=== PATIENT | female | born 1985 | race Caucasian/White ===

== ENCOUNTER 2024-03-27 22:27 | Emergency (ER) | payer MEDICAID ==
[2024-03-27 22:57] LABS: BASOPHILS % (AUTO) 0.2 %; EOSINOPHILS # (AUTO) 0.1 10^3/uL (0.0-0.7); EOSINOPHILS % (AUTO) 0.6 %; HCT - HEMATOCRIT 39.7 % (37.0-47.0); HGB - HEMOGLOBIN 12.7 g/dL (12.0-16.0); LYMPHOCYTES # (AUTO) 2.3 10^3/uL (1.5-3.5); LYMPHOCYTES % (AUTO) 25.9 %; MEAN CORPUSCULAR HEMOGLOBIN 29.3 pg (27.0-31.0); MEAN CORPUSCULAR VOLUME 91.7 fL (81.0-99.0); MEAN PLATELET VOLUME 9.8 fL (7.9-10.8); MONOCYTES # (AUTO) 0.7 10^3/uL (0.0-1.0); MONOCYTES % (AUTO) 7.7 %; NEUTROPHILS # (AUTO) 5.7 10^3/uL (1.5-6.6); NEUTROPHILS % (AUTO) 65.3 %; PLT - PLATELET COUNT 334 10^3/uL (130-450); RED BLOOD COUNT 4.33 10^6/uL (4.20-5.40); RED CELL DISTRIBUTION WIDTH 12.7 % (12.0-15.0); WHITE BLOOD COUNT 8.8 x10^3/uL (4.8-10.8)
[2024-03-27 23:17] LABS: ALBUMIN 4.5 g/dL (3.2-5.5); ALBUMIN/GLOBULIN RATIO 1.6 (1.0-2.2); BILIRUBIN,TOTAL 0.7 mg/dL (0.2-1.0); CALCIUM 9.9 mg/dL (8.5-10.3); CREATININE 0.6 mg/dL (0.6-1.3); POTASSIUM 3.8 mmol/L (3.5-4.5); TOTAL PROTEIN 7.4 g/dL (6.4-8.9)
[2024-03-27 23:18] VITALS: BP 120/81; O2SAT 100
--- NOTE | 2024-03-27 23:39 | ED Physician Documentation ---
History of Present Illness - Stated complaint Stated Complaint: PAIN/BLOOD SUGAR ISSUES - Chief complaint Chief Complaint: General - History obtained from History obtained from: Patient - Additonal information Additional information: The patient presents to the emergency department with a variety of complaints, Each say going into the other. The patient really cannot articulate exactly why she is here stating by turns that her back hurts, her foot hurts, she had a blood sugar issue, and she is coughing, among other things. She denies any trauma. No fevers or chills. PD PAST MEDICAL HISTORY - Past Medical History Past Medical History: Yes Psych: Depression, Anxiety - Past Surgical History Past Surgical History: No General: Cholecystectomy /[employer]: Hysterectomy - Present Medications Home Medications: Ambulatory Orders Medication Instructions Recorded Confirmed hydrOXYzine HCL [Hydroxyzine HCl] 25 - 50 mg PO Q8H PRN #20 tablet 03/27/24 - Allergies Allergies/Adverse Reactions: Allergies Allergy/AdvReac Type Severity Reaction Status Date / Time amoxicillin Allergy Rash Verified 03/27/24 22:35 Penicillins Allergy Rash Verified 03/27/24 22:35 Sulfa (Sulfonamide Allergy Rash Verified 03/27/24 22:35 Antibiotics) - Social History Does the pt smoke?: Yes Smoking Status: Current every day smoker Does the pt drink ETOH?: No Does the pt have substance abuse?: Yes Substance Use and Type: Meth, Other - Immunizations Immunizations are current?: No - POLST Patient has POLST: No PD ED PE NORMAL - Vitals Vital signs reviewed: Yes - General General: No acute distress, Well developed/nourished, Other - HEENT HEENT: Atraumatic (Alert, answers questions), PERRL, Moist mucous membranes - Neck Neck: Supple, no meningeal sign - Cardiac Cardiac: RRR, No murmur - Respiratory Respiratory: No respiratory distress, Clear bilaterally - Abdomen Abdomen: Soft, Non tender, Non distended - Derm Derm: Normal color, Warm and dry, No rash - Extremities Extremities: No deformity, No edema - Neuro Neuro: Alert and oriented X 3 - Psych Psych: Normal mood, Normal affect Results - Vitals Vitals: Oxygen O2 Source Room air - Labs Labs: Laboratory Tests 03/27/24 03/27/24 03/27/24 22:39 22:49 22:49 WBC 8.8 RBC 4.33 Hgb 12.7 Hct 39.7 MCV 91.7 MCH 29.3 MCHC 32.0 RDW 12.7 Plt Count 334 MPV 9.8 Neut # (Auto) 5.7 Lymph # (Auto) 2.3 Stokes # (Auto) 0.7 Eos # (Auto) 0.1 Baso # (Auto) 0.0 Absolute Nucleated RBC 0.00 Nucleated RBC % 0.0 Sodium 138 Potassium 3.8 Chloride 102 Carbon Dioxide 29 Anion Gap 7.0 BUN 9 Creatinine 0.6 Estimated GFR (MDRD) 111 Glucose 94 POC Whole Bld Glucose 113 H Calcium 9.9 Total Bilirubin 0.7 AST 23 ALT 19 Alkaline Phosphatase 81 Total Protein 7.4 Albumin 4.5 Globulin 2.9 Albumin/Globulin Ratio 1.6 Lipase 20 PD Medical Decision Making - ED course Complexity details: considered differential, d/w patient ED course: Alert, answers questionsThe patient had numerous complaints and never really took the time to feel any one of them out. She did not have any physical exam findings that were of concern and I felt she was stable for discharge Departure - Departure Disposition: 01 Home, Self Care Clinical Impression: Chronic back pain Qualifiers: Back pain location: low back pain Back pain laterality: left Sciatica presence: without sciatica Qualified Code(s): M54.50 - Low back pain, unspecified Condition: Stable Instructions: ED Neck Back Pain General Prescriptions: hydrOXYzine HCL [Hydroxyzine HCl] 25 - 50 mg PO Q8H PRN #20 tablet PRN Reason: Anxiety Comments: It is not clear why you have chronic low back pain. You will need to follow-up with your primary doctor to discuss this. There is no evidence of a new or emergent condition causing pain tonight. Your blood sugar was normal at 94 and 113, based on our measurements. I have refilled your hydroxyzine as you have requested, and the prescription has been electronically transmitted to the [facility] pharmacy in [place] at your request. Please pick this up in the morning. Forms: PCP List Discharge Date/Time: 03/28/24 00:20
== END 2024-03-28 00:20 | disposition home or self-care (01) ==
LOC: ED 22:27
DX: M54.50 Low back pain, unspecified (principal); F17.200 Nicotine dependence, unspecified, uncomplicated
CPT/HCPCS: 36415; 80053; 83690; 85025; 99283